=== PATIENT | male | born 1990 | race Caucasian/White ===

== ENCOUNTER 2018-05-18 15:38 | Outpatient (CLI) | payer OTHER ==
--- NOTE | 2018-05-19 15:14 | MRI Report ---
Reason: PAIN IN LEFT KNEE Procedure Date: 05/18/2018 Accession Number: [id number] / [id number] Procedure: MRI - Knee LT W/O CPT Code: FULL RESULT: EXAM: LEFT KNEE MRI WITHOUT CONTRAST EXAM DATE: 05/18/2018 06:26 PM. CLINICAL HISTORY: PAIN IN LEFT KNEE. COMPARISON: None. TECHNIQUE: Multiplanar, multisequence T1-weighted and fluid-sensitive sequences of the knee without contrast. Other: None. FINDINGS: Bones: No fractures or subluxations. No marrow edema. No bone lesions. Articular Cartilage: Unremarkable. Medial Meniscus: The medial meniscus is intact. Lateral Meniscus: The lateral meniscus is intact. Cruciate Ligaments: The anterior and posterior cruciate ligaments are intact. Collateral Ligaments: The medial collateral and lateral collateral ligamentous structures are intact. Tendons: There is thickening and intermediate signal within the proximal patellar tendon, with a focus of ossification within the deep fibers of the proximal patellar tendon adjacent to the patella. No patellar tendon tear. The quadriceps tendon is normal. The hamstrings tendons are normal. The popliteus tendon is normal. Musculature: No edema or fatty atrophy. Other: No effusion. No popliteal cyst. No loose bodies. The medial and lateral retinacula are intact. Minimal edema within the superolateral aspect of Hoffa's fat pad. There is prepatellar subcutaneous edema with a small amount of fluid within the prepatellar bursa. IMPRESSION: 1. Proximal patellar tendinosis appears chronic. No patellar tendon tear. 2. Prepatellar soft tissue swelling with a small amount of fluid within the prepatellar bursa, likely related to recent trauma. Prepatellar bursitis could also be considered. 3. Minimal edema within the superolateral aspect of Hoffa's fat pad could reflect mild fat pad impingement in the setting of patellar tendon-lateral femoral condyle friction syndrome. 4. Normal cruciate and collateral ligaments. Normal menisci. RADIA MUSCULOSKELETAL RADIOLOGY SECTION
== END 2018-05-18 15:39 | disposition home or self-care (01) ==
LOC: DI 15:38
PROVIDERS: ATTEND General Practice
DX: M67.864 Other specified disorders of tendon, left knee (principal); M25.462 Effusion, left knee